=== PATIENT | female | born 1995 | race Caucasian/White ===

== ENCOUNTER 2018-02-13 13:00 | Emergency (ER) | payer SELFPAY ==
--- NOTE | 2018-02-13 13:02 | ER Document Report ---
ED Medical Screen (RME) - General Stated Complaint: VAGINAL BLEEDING Time Seen by Provider: 02/13/18 13:01 Mode of Arrival: Ambulatory Information source: Patient Notes: 22-year-old female presents to ED for complaint of vaginal bleeding since about an hour ago. She states she was feeling bad when she woke up this morning so she laid back down because she did not have any power. When she woke up about an hour ago went to the bathroom she was bleeding. She states she is about 7 weeks . She states this is her second and she lost the first 1 also. Patient is alert oriented respirations regular and unlabored speaking in full sentences walk with a even steady gait. Patient is 2 para 0 I have greeted and performed a rapid initial assessment of this patient. A comprehensive ED assessment and evaluation of the patient, analysis of test results and completion of medical decision making process will be conducted by an additional ED providers. TRAVEL OUTSIDE OF THE [place] IN LAST 30 DAYS: No - Related Data Allergies/Adverse Reactions: No Known Allergies Allergy (Verified 04/20/15 13:55) Past Medical History - Social History Family history: CAD, Other - DVT - Past Medical History Cardiac Medical History: Pulmonary Medical History: Reports: Hx Bronchitis Neurological Medical History: Musculoskeltal Medical History: Past Surgical History: Reports: Hx Genitourinary Surgery - D&C, Hx Oral Surgery , Hx Orthopedic Surgery - L knee - Immunizations Hx Diphtheria, Pertussis, Tetanus Vaccination: Yes
--- NOTE | 2018-02-13 13:37 | ER Document Report ---
ED General - General Chief Complaint: Vaginal Bleeding Stated Complaint: VAGINAL BLEEDING Time Seen by Provider: 02/13/18 13:01 Mode of Arrival: Ambulatory Notes: 22-year-old female who is a at 7 weeks presents the emergency department complaining of vaginal bleeding. Patient states that she had a small amount of vaginal bleeding when she wiped today after going to the bathroom, states it is not heavy enough to need to use pads. States that she did have sex yesterday morning, is having some lower abdominal pain now. Patient is concerned she may be having a miscarriage as her last ended in a miscarriage at 5-6 weeks along and the miscarriage started very similarly. Patient complains of nausea and vomiting as well as a headache, also complains of some heartburn. Denies diarrhea, fevers or dysuria. Patient was given methotrexate for her last miscarriage and when that did not work had to have a D&C. TRAVEL OUTSIDE OF THE [place] IN LAST 30 DAYS: No - Related Data Allergies/Adverse Reactions: No Known Allergies Allergy (Verified 04/20/15 13:55) Past Medical History - General Information source: Patient - Social History Smoking Status: Former Smoker Cigarette use (# per day): No Chew tobacco use (# tins/day): No Frequency of alcohol use: None Drug Abuse: None Lives with: Family Family History: Reviewed & Not Pertinent - Past Medical History Cardiac Medical History: Pulmonary Medical History: Reports: Hx Bronchitis Neurological Medical History: Musculoskeletal Medical History: Past Surgical History: Reports: Hx Genitourinary Surgery - D&C, Hx Oral Surgery , Hx Orthopedic Surgery - L knee - Immunizations Hx Diphtheria, Pertussis, Tetanus Vaccination: Yes Review of Systems - Review of Systems Constitutional: No symptoms reported EENT: No symptoms reported Cardiovascular: No symptoms reported Respiratory: No symptoms reported Gastrointestinal: See HPI, Other - Heartburn Female Genitourinary: See HPI, , Vaginal bleeding -: Yes All other systems reviewed and negative Physical Exam - Vital signs Vitals: Temp Pulse Resp BP Pulse Ox 98.1 F 77 16 108/67 99 02/13/18 13:03 02/13/18 13:03 02/13/18 13:03 02/13/18 13:03 02/13/18 13:03 - Notes Notes: GENERAL: Alert, interacts well. No acute distress. HEAD: Normocephalic, atraumatic EYES: Pupils equal, round and reactive to light, extraocular movements intact. ENT: Oral mucosa moist, tongue midline. NECK: Full range of motion, supple, trachea midline. LUNGS: Clear to auscultation bilaterally, no wheezes, rales or rhonchi, no respiratory distress. HEART: Regular rate and rhythm, no murmurs, gallops, rubs. ABDOMEN: Soft, lower abdominal tenderness palpation suprapubically and bilateral lower quadrants, no masses, nondistended, bowel sounds present in all 4 quadrants. EXTREMITIES: Moves all 4 extremities spontaneously, no edema, radial and dorsalis pedis pulses 2/4 bilaterally. No cyanosis. GENITAL: Small amount of vaginal bleeding, cervical loss is closed. NEUROLOGICAL: Alert and oriented x3, normal speech. PSYCH: Normal mood, normal affect. SKIN: Warm, Dry, normal turgor, no rashes or lesions noted. Course - Re-evaluation Re-evalutation: 02/13/18 14:50 Ultrasound shows intrauterine gestational sac containing an embryo and yolk sac , crown-rump length measures 3 mm for an estimated gestational age of 6 weeks 0 days. No activity cardiac activity is seen. 02/13/18 14:50 CMP unremarkable, quantitative beta-hCG is 2973.8. Blood type is O-. CBC is pending. 02/13/18 15:56 CBC unremarkable, CMP unremarkable, quantitative hCG 2973.8, urinalysis shows large blood but no signs of infection, patient is O- so she has received RhoGam. Transvaginal ultrasound is as above. Discussed with patient that 6 weeks is when we see cardiac activity and approximately 50% of patients. Patient is to keep her OB appointment on Friday, have her quantitative hCG repeated at that point and have her ultrasound repeated at that point as well. Patient is informed that she should be on complete vaginal rest until then. - Vital Signs Vital signs: Temp Pulse Resp BP Pulse Ox 98.1 F 77 16 108/67 99 02/13/18 13:03 02/13/18 13:03 02/13/18 13:03 02/13/18 13:03 02/13/18 13:03 - Laboratory Result Diagrams: 02/13/18 13:40 02/13/18 13:40 Laboratory results interpreted by me: 02/13/18 02/13/18 13:40 14:45 BUN 5 L Beta HCG, Quant 2973.80 H Urine Blood LARGE H Discharge - Discharge Clinical Impression: Threatened miscarriage Condition: Stable Disposition: HOME, SELF-CARE Instructions: Threatened Miscarriage ([facility]) Additional Instructions: Please follow-up with [facility] POLICY ANALYST on Friday. Do not put anything in your vagina, do not use tampons or have sex until cleared by PUBLIC HEALTH POLICY ANALYST. Your quantitative hCG was 2973
[2018-02-13 14:31] LABS: ALANINE AMINOTRANSFERASE 16 U/L (9-52); ALBUMIN 4.5 g/dL (3.5-5.0); ALKALINE PHOSPHATASE 60 U/L (38-126); ANION GAP 9 (5-19); ASPARTATE AMINO TRANSFERASE 19 U/L (14-36); BILIRUBIN,DIRECT 0.2 mg/dL (0.0-0.4); BILIRUBIN,TOTAL 0.5 mg/dL (0.2-1.3); BLOOD UREA NITROGEN 5 mg/dL (7-20); CALCIUM 9.8 mg/dL (8.4-10.2); CARBON DIOXIDE 29 mmol/L (22-30); CHLORIDE 103 mmol/L (98-107); GLUCOSE 86 mg/dL (75-110); POTASSIUM 4.1 mmol/L (3.6-5.0); SODIUM 140.7 mmol/L (137-145); TOTAL PROTEIN 7.8 g/dL (6.3-8.2)
--- NOTE | 2018-02-13 14:45 | RADIOLOGY REPORT (SQ) ---
EXAM DESCRIPTION: U/S OB TRANSVAG W/DOPPLER COMPLETED DATE/TIME: 02/13/2018 2:21 pm REASON FOR STUDY: vaginal bleeding, 7 weeks COMPARISON: No previous this TECHNIQUE: Endovaginal static and realtime grayscale images acquired of the pelvis. Additional selec katie spectral and color Doppler images recorded. All images stored on PACs. bHCG: Not available CLINICAL DATES: Last menses 12/23/2017 LIMITATIONS: None. FINDINGS: There is an intrauterine gestational sac containing an embryo and yolk sac. Embryo crown- rump length 3 mm generates an estimated age of 6 weeks 0 days. However, no embryo cardiac activity w as identified on color flow, real-time, or M-mode Doppler. This report was called to Dr. Munroe, 143 0 hours 02/13/2018 ULTRASOUND EGA: 6 weeks 0 days ULTRASOUND MAGALYS: 10/09/2018 CRL: 3 mm FHR: Not detected SUBCHORIONIC BLEED: No SIZE OF BLEED: Not applicable. UTERUS: No masses. No anomalies. Uterus is 8 x 5 x 4 cm in size CERVICAL LENGTH: 3 cm in length. Closed. RIGHT ADNEXA: Normal ovary with normal vascular flow. Right ovary is 3.2 x 2 x 2 cm in size. No adnexal free fluid. No adnexal masses. LEFT ADNEXA: Normal ovary with normal vascular flow. Left ovary is 3.1 x 2.7 x 1.6 cm in size No adnexal free fluid. No adnexal masses. FREE FLUID: None. OTHER: No other significant finding. IMPRESSION: Intrauterine gestational sac containing an embryo and yolk sac. Embryo measures 6 weeks 0 days. No embryo cardiac activity. Trimester of : First - 0 to 13 weeks. COMMENT: Pertinent findings on the imaging study reported as a CRITICAL RESULT to MATT Rosales t14:30 on 02/13/2018. Category of Critical Result: No embryo cardiac activity. Estimated gestational age 6 weeks 0 days TECHNICAL DOCUMENTATION: JOB ID: [id number]- All Rights Reserved Reading location - IP/workstation name: [email or web address]
[2018-02-13 15:12] LABS: ABSOLUTE EOSINOPHILS # (AUTO) 0.1 10^3/uL (0.0-0.6); ABSOLUTE LYMPHOCYTES (AUTO) 2.1 10^3/uL (0.5-4.7); ABSOLUTE MONOCYTES (AUTO) 0.4 10^3/uL (0.1-1.4); ABSOLUTE NEUT (AUTO) 4.3 10^3/uL (1.7-8.2); BASOPHILS % (AUTO) 0.5 % (0-2); HEMATOCRIT 40.9 % (36.0-47.0); HEMOGLOBIN 13.9 g/dL (12.0-15.5); LYMPHOCYTES % (AUTO) 30.3 % (13-45); MEAN CORPUSCULAR HEMOGLOBIN 29.5 pg (27.0-33.4); MEAN CORPUSCULAR HGB CONC 33.9 g/dL (32.0-36.0); MEAN CORPUSCULAR VOLUME 87 fl (80-97); MONOCYTES % (AUTO) 6.3 % (3-13); PLATELET COUNT 216 10^3/uL (150-450); RED BLOOD COUNT 4.71 10^6/uL (3.72-5.28); RED CELL DISTRIBUTION WIDTH 13.2 % (11.5-14.0); SEGMENTED NEUTROPHILS % (AUTO) 61.9 % (42-78); TOTAL CELLS COUNTED % (AUTO) 100 %
[2018-02-13 15:25] LABS: APPEARANCE,URINE CLEAR; BILIRUBIN,URINE NEGATIVE (NEGATIVE); COLOR,URINE STRAW; GLUCOSE, URINE NEGATIVE (NEGATIVE); KETONES,URINE NEGATIVE (NEGATIVE); LEUKOCYTE ESTERASE,URINE NEGATIVE (NEGATIVE); NITRITE,URINE NEGATIVE (NEGATIVE); PROTEIN,URINE NEGATIVE (NEGATIVE); URINE SPECIFIC GRAVITY 1.004; UROBILINOGEN,URINE NEGATIVE mg/dL (<2.0)
[2018-02-13 16:23] VITALS: BP 117/64
== END 2018-02-13 16:10 | disposition home or self-care (01) ==
LOC: ER 13:00
DX: O20.0 Threatened abortion (principal); O36.0910 Maternal care for other rhesus isoimmunization, first trimester, not applicable or unspecified; O21.9 Vomiting of pregnancy, unspecified; O26.891 Other specified pregnancy related conditions, first trimester; R10.30 Lower abdominal pain, unspecified; R10.813 Right lower quadrant abdominal tenderness; R10.814 Left lower quadrant abdominal tenderness; R51 Headache; R12 Heartburn; Z3A.01 Less than 8 weeks gestation of pregnancy; Z87.891 Personal history of nicotine dependence; Z87.59 Personal history of other complications of pregnancy, childbirth and the puerperium
CPT/HCPCS: 99284; 86900; 86901; 36415; 86850; 84702; 85025; 80053; 81001; 76817; 93976; J2790